=== PATIENT | female | born 1980 | race Caucasian/White ===

== ENCOUNTER 2020-04-19 18:54 | Emergency (ER) | payer OTHER, SELFPAY ==
--- NOTE | 2020-04-19 19:41 | ED.DENTAL ---
HPI - Dental/Oral General Chief complaint: Dental/Oral Stated complaint: right side of face pain/swollen/fever Time Seen by Provider: 04/19/20 19:41 Source: patient Mode of arrival: ambulatory Limitations: no limitations History of Present Illness HPI Narrative: Roberta Fajardo is a 39 yo female with a PMH w depression, asthma, who had a filling last Wednesday and pain began on Wednesday she is here for dental pain and right ear pain. Wants an antibiotic; also has swelling janes L eye Related Data Home Medications Medication Instructions Recorded Confirmed Geodon 04/19/20 amitriptyline 04/19/20 buspirone mg 04/19/20 cyclobenzaprine mg 04/19/20 hydroxyzine pamoate 04/19/20 montelukast mg 04/19/20 oxcarbazepine 04/19/20 Allergies Allergy/AdvReac Type Severity Reaction Status Date / Time No Known Drug Allergies Allergy Unknown Verified 06/28/19 16:08 Review of Systems Review of Systems: Narrative: CONSTITUTIONAL: Denies fever, chills, sweats. EYES: Denies visual changes, redness, discharge. ENT: Denies rhinorrhea, congestion, sore throat, otalgia. Dental pain CARDIOVASCULAR: Denies chest pain, palpitations, edema. RESPIRATORY: Denies dyspnea, wheezing, cough GASTROINTESTINAL: Denies abdominal pain, nausea, vomiting, diarrhea. GENITOURINARY: Denies dysuria, hematuria, abnormal discharge SKIN: Denies rash or itching. NEUROLOGIC: Denies numbness, or focal weakness. PSYCHIATRIC: Denies anxiety or depression. PMFSH Family History Family History (Updated 04/19/20 @ 19:47 by Hannah Marks CNP) Other Cerebrovascular accident Diabetes mellitus Heart disease Hypertension Social History Social History (Updated 04/19/20 @ 19:47 by Hannah Marks CNP) Smoking status: Former smoker Tobacco type: cigarettes Alcohol intake: never Comments At time of signature, I agree with nursing past medical, surgical, social and family history. There is no relevant family history pertinent to the presenting complaint. Exam Narrative: Exam Narrative: GENERAL: This is a well-nourished, well-developed patient, in mild distress. HEAD: normocephalic, atraumatic. EYES: PERRL. Sclera clear/white. Vision is grossly intact. Is swelling under left eye with minimal tenderness. Appears to have start of stye EARS: External ears normal, auditory canals clear- R ear canal erythema, fluid behind TM, submandibular lymph node tenderness; no swelling around tooth, hearing grossly intact. NOSE: External nose normal without nasal discharge, nares without redness, no rhinorrhea. THROAT: Mucous membranes moist, posterior pharynx pink NECK: Neck supple, [id number] node tenderness CARDIOVASCULAR: Regular rate and rhythm without murmurs, gallops, or rubs. RESPIRATORY: Clear to auscultation. Breath sounds equal bilaterally. No wheezes, rales, or rhonchi. GASTROINTESTINAL: Abdomen soft, non-tender, SKIN: warm, intact NEURO: awake, alert, and oriented to person, place and time. There were no obvious focal neurologic abnormalities. Steady gait EXTREMITIES: Normal range of motion. BACK: Nontender without deformity Course Course Emergency Course: Started on amoxicillin for ear and dental pain, medication Given directions on warm soaks and massage for under left eye swelling Follow-up with PCP and dentist MDM - Dental/Oral Differential Diagnosis Differential diagnosis: Likely gingival abscess, dental caries, dental abscess and other (Submandibular tenderness, right ear pain stye to left eye) Discharge Plan Discharge Clinical Impression: Toothache, Acute pain of right ear, Hordeolum externum left lower eyelid Patient Disposition: Home, Self-Care Condition: Stable Instructions: Antibiotic Form, Stye (ED), Earache (ED) Prescriptions: New amoxicillin 875 mg tablet 875 mg PO Q12H Qty: 20 RF: 0 hydrocodone-acetaminophen [[place]] 5-325 mg tablet 1 tablet PO Q6H PRN (Reason: pain) Qty: 14 RF: 0
== END 2020-04-19 20:02 | disposition home or self-care (01) ==
PROVIDERS: Emergency Provider Nurse Practitioner; PCP Internal Medicine
DX: K08.89 Other specified disorders of teeth and supporting structures (principal); H92.01 Otalgia, right ear; H00.015 Hordeolum externum left lower eyelid; Z87.891 Personal history of nicotine dependence; F32.9 Major depressive disorder, single episode, unspecified; J45.909 Unspecified asthma, uncomplicated
CPT/HCPCS: 99213; G0463

== ENCOUNTER 2020-06-02 18:03 | Emergency (ER) | payer OTHER, SELFPAY ==
[2020-06-02 18:06] VITALS: BP 109/74; PULSE 86; RESP 14; TEMP 37.1; O2SAT 99
--- NOTE | 2020-06-02 18:20 | ED.EAR ---
HPI - Ear Problem General Chief complaint: Ear Stated complaint: right ear pain/pressure/drainage Time Seen by Provider: 06/02/20 18:20 Source: patient Mode of arrival: ambulatory Limitations: no limitations History of Present Illness HPI Narrative: Roberta Fajardo is a 39 yo female with a PMH of anxiety, PTSD, who comes to express care for R ear/jaw liudmila after filling done on Wednesday by her dentist. States pain is getting worse since filling. States she has TMJ cracking with opening closing her mouth aggravates her pain. Denies nausea, vomiting, fever She is being treated for anxiety and depression related to PTSD. Related Data Home Medications Medication Instructions Recorded Confirmed buspirone 15 mg PO BID 04/19/20 06/02/20 hydroxyzine pamoate 25 mg PO BID 04/19/20 06/02/20 oxcarbazepine 300 mg PO BID 04/19/20 06/02/20 amitriptyline 25 mg PO HS 06/02/20 06/02/20 clonazepam 0.5 mg PO HS 06/02/20 06/02/20 quetiapine 50 mg PO HS 06/02/20 06/02/20 Allergies Allergy/AdvReac Type Severity Reaction Status Date / Time No Known Drug Allergies Allergy Unknown Unknown Verified 06/02/20 18:15 Review of Systems Review of Systems: Narrative: CONSTITUTIONAL: Denies fever, chills, sweats. EYES: Denies visual changes, redness, discharge. ENT: Denies rhinorrhea, congestion, sore throat, R otalgia. Right-sided jaw and tooth pain CARDIOVASCULAR: Denies chest pain, palpitations, edema. RESPIRATORY: Denies dyspnea, wheezing, cough GASTROINTESTINAL: Denies abdominal pain, nausea, vomiting, diarrhea. GENITOURINARY: Denies dysuria, hematuria, abnormal discharge SKIN: Denies rash or itching. NEUROLOGIC: Denies numbness, or focal weakness. PSYCHIATRIC: Denies anxiety or depression. [facility] Past Medical History Medical History (Updated 06/02/20 @ 18:34 by Hannah Marks CNP) PTSD (post-traumatic stress disorder) Family History Family History Other Cerebrovascular accident Diabetes mellitus Heart disease Hypertension Social History Social History (Updated 06/02/20 @ 18:29 by Hannah Marks CNP) Smoking status: Current some day smoker Tobacco type: cigarettes Alcohol intake: never Comments At time of signature, I agree with nursing past medical, surgical, social and family history. There is no relevant family history pertinent to the presenting complaint. Exam Narrative: Exam Narrative: GENERAL: This is a well-nourished, well-developed patient, in mild distress. HEAD: normocephalic, atraumatic. EYES: Sclera clear/white. Vision is grossly intact. EARS: External ears normal, auditory canals clear on L, edemaatous on R with erythema. and without drainage, TMs without perforation. Hearing grossly intact. NOSE: External nose normal without nasal discharge, nares without redness, no rhinorrhea. THROAT: Mucous membranes moist, posterior pharynx mild erythema NECK: Neck supple, tender R - submandibular LN tenderness CARDIOVASCULAR: Regular rate and rhythm without murmurs, gallops, or rubs. RESPIRATORY: Clear to auscultation. Breath sounds equal bilaterally. No wheezes, rales, or rhonchi. GASTROINTESTINAL: Abdomen soft, non-tender, SKIN: warm, intact with no suspicious lesions or rash, good texture and turgor. NEURO: awake, alert, and oriented to person, place and time. There were no obvious focal neurologic abnormalities. Steady gait EXTREMITIES: Normal range of motion. BACK: Nontender without deformity Psych: appears anxious; cooperative Course Course Emergency Course: Started on clindamycin; Tylenol 3 for pain Follow-up with primary care physician and ENT for TMJ issues Vital Signs Vital signs: Vital Signs Temperature 98.8 F 06/02/20 18:06 Pulse Rate 86 06/02/20 18:06 Respiratory Rate 14 06/02/20 18:06 Blood Pressure 109/74 06/02/20 18:06 Pulse Oximetry 99 06/02/20 18:06 Temperature 98.8 F 06/02/20 18:06 Pulse Rate 86
== END 2020-06-02 18:40 | disposition home or self-care (01) ==
PROVIDERS: Emergency Provider Nurse Practitioner; PCP Internal Medicine
DX: H92.01 Otalgia, right ear (principal); M26.621 Arthralgia of right temporomandibular joint; F17.210 Nicotine dependence, cigarettes, uncomplicated; F43.10 Post-traumatic stress disorder, unspecified; F41.9 Anxiety disorder, unspecified; F31.9 Bipolar disorder, unspecified
CPT/HCPCS: 99213; G0463

== ENCOUNTER 2020-07-09 13:33 | Outpatient (CLI) | payer OTHER, SELFPAY | END 2020-07-09 13:34 | disposition home or self-care (01) | LOC: ANHBWCAUD 14:22 | PROVIDERS: Visit Provider Otolaryngology | DX: H90.3 Sensorineural hearing loss, bilateral (principal) | CPT/HCPCS: 92557; 92567 ==

== ENCOUNTER 2020-07-25 06:37 | Outpatient (CLI) | payer OTHER, SELFPAY ==
--- NOTE | ~2020-07-25 | CT_ITS ---
EXAMINATION: CT sinus wo con DATE: 07/25/2020 06:58 INDICATION: Chronic sinusitis TECHNIQUE: Computed tomography (CT) of the paranasal sinuses was performed without intravenous contra st. The dose-length product was 318.31 mGy-cm. Iterative reconstruction technique was employed. COMPARISON: None FINDINGS: There are small mucous retention cysts of the right maxillary sinus. There is mild mucosal thickening in the left maxillary sinus. Rightward nasal septal deviation. Ostiomeatal units are paten t. Right nasal septal deviation. Mastoids are pneumatized. IMPRESSION: 1. Mild sinusitis. Reviewed, dictated and finalized at location B. IMPRESSION: 1. Mild sinusitis.
== END 2020-07-25 06:38 | disposition home or self-care (01) ==
PROVIDERS: PCP Internal Medicine; Visit Provider Otolaryngology
DX: J32.9 Chronic sinusitis, unspecified (principal)
CPT/HCPCS: 70486

== ENCOUNTER 2021-04-20 16:29 | Emergency (ER) | payer OTHER, SELFPAY ==
[2021-04-20 16:34] VITALS: BP 99/66; PULSE 92; RESP 14; TEMP 36.6; O2SAT 100
--- NOTE | 2021-04-20 17:01 | ED.GENADULT ---
HPI - General Adult General Chief complaint: Upper Respiratory Infection Stated complaint: Sore throat, right Ear pain, Rash on Feet Source: patient Mode of arrival: ambulatory Limitations: no limitations History of Present Illness HPI narrative: Pt presents for evaluation of rash that she has experienced to anterior chest wall and dorsal aspect of both feet that she has experienced for the last four to five days. She states symptoms started after eating out of the sun. She is currently on doxycycline for some type of chronic left infraorbital swelling of unknown origin per dermatology. She states she has been on this medication for many months. She denies any new lotions, soaps or detergents. She has some chronic right sided ear pain with radiation into right lateral neck, sore throat and dizziness that she initially informed me started at the same time of her rash. However later she informs me that none of these symptoms are new and that she is experienced them for many years. She states she has TMJ very bad . She has seen ENT, dermatology and other specialists for her symptoms. She states she had a mild fever recently but cannot specify when. She is also experienced some fatigue and dizziness. She denies any chills, nausea, vomiting. She has not been sexually active in at least four years. Related Data Home Medications Medication Instructions Recorded Confirmed buspirone 15 mg PO BID 04/19/20 06/02/20 hydroxyzine pamoate 25 mg PO BID 04/19/20 06/02/20 oxcarbazepine 300 mg PO BID 04/19/20 06/02/20 quetiapine 50 mg PO HS 06/02/20 06/02/20 buspirone 15 mg tablet 15 mg PO BID 07/02/20 citalopram 40 mg tablet 40 mg PO DAILY 07/02/20 clonazepam 0.5 mg tablet 0.5 mg PO DAILY 07/02/20 fluticasone furoate 100 1 inhalation INHALATION DAILY 07/02/20 mcg/actuation blister powder for inhalation montelukast 10 mg tablet 10 mg PO DAILY 07/02/20 oxcarbazepine 300 mg tablet 300 mg PO BID 07/02/20 pantoprazole 20 mg tablet,delayed 20 mg PO QAM 07/02/20 release fluoxetine 40 mg capsule 40 mg PO DAILY 07/31/20 Allergies Allergy/AdvReac Type Severity Reaction Status Date / Time aripiprazole [From Abilify] Allergy Unknown Verified 04/20/21 16:59 bupropion [From Wellbutrin] Allergy Unknown Verified 04/20/21 16:59 duloxetine [From Cymbalta] Allergy Unknown Verified 04/20/21 17:00 Review of Systems Review of Systems: Narrative: CONSTITUTIONAL: Reports subjective fever and fatigue. Denies chills, or sweats. EYES: Reports chronic swelling beneath both eyes. Denies visual changes, redness, or discharge. ENT: Reports sore throat and right-sided otalgia. Denies rhinorrhea, congestion. CARDIOVASCULAR: Denies chest pain, palpitations, or edema. RESPIRATORY: Denies cough or dyspnea. GASTROINTESTINAL: Denies abdominal pain, nausea, vomiting, or diarrhea. GENITOURINARY: Denies dysuria or hematuria. SKIN: Reports pruritic rash to chest and dorsal aspect of both feet MUSCULOSKELETAL: Denies back pain, joint pain, or myalgia. NEUROLOGIC: Reports dizziness. Denies headache, numbness, or weakness. PSYCHIATRIC: Denies anxiety or depression. [facility] Past Medical History Medical History (Updated 04/20/21 @ 17:19 by JOSE Luis, ) PTSD (post-traumatic stress disorder) Surgical History Surgical History H/O adenoidectomy H/O LEEP Family History Family History Mother Diabetes mellitus Hypertension COPD (chronic obstructive pulmonary disease) Other Cerebrovascular accident Heart disease Social History Social History Smoking packs per day: 0.5 Smoking cigarettes per day: 10.0 Years smoked: 20 Smoking pack-years: 10.00 Smoking status: Current every day smoker Tobacco type: cigarettes Second hand tobacco smoke exposure: Yes
== END 2021-04-20 17:42 | disposition home or self-care (01) ==
PROVIDERS: Emergency Provider Nurse Practitioner; PCP Internal Medicine
DX: R21 Rash and other nonspecific skin eruption (principal); R42 Dizziness and giddiness; F43.10 Post-traumatic stress disorder, unspecified; F17.210 Nicotine dependence, cigarettes, uncomplicated
CPT/HCPCS: 36416; 86308; 87081; 87880; 99213; G0463

== ENCOUNTER → 2021-06-20 01:43 | Outpatient (CLI) | payer OTHER, SELFPAY ==
[2021-06-20 19:39] LABS: SARS-CoV-2 RNA PCR Negative
== END ==
PROVIDERS: PCP Internal Medicine; Visit Provider Internal Medicine
DX: R68.89 Other general symptoms and signs (principal); Z20.822 Contact with and (suspected) exposure to COVID-19
CPT/HCPCS: C9803; U0003; U0005

== ENCOUNTER 2021-07-29 09:38 | Emergency (ER) | payer OTHER, SELFPAY ==
--- NOTE | 2021-07-29 09:43 | ED.URI ---
HPI - URI/Sore Throat General Stated Complaint: Covid symptoms Time Seen by Provider: 07/29/21 09:43 Source: patient and RN notes reviewed History of Present Illness HPI Narrative: Patient is a 41-year-old female who presents the urgent care with complaints of possible Covid-like symptoms. Patient states that her symptoms started 2 weeks ago with nausea and abdominal discomfort. Patient states that now she is having upper respiratory symptoms for the last week with runny nose, nasal congestion, sore throat, mild nonproductive cough. Patient states that she just started Sudafed this morning and has been taking Tylenol for her symptoms. Patient has had the Covid vaccine and denies of any exposure to Covid. Patient denies of any fevers. No other acute complaints. No acute distress noted. Patient aware of the plan of care. Some parts of this dictation were generated by voice recognition software and may contain typographical and/or grammatical inaccuracies. Related Data Home Medications Medication Instructions Recorded Confirmed buspirone 15 mg PO BID 04/19/20 06/02/20 hydroxyzine pamoate 25 mg PO BID 04/19/20 06/02/20 oxcarbazepine 300 mg PO BID 04/19/20 06/02/20 quetiapine 50 mg PO HS 06/02/20 06/02/20 buspirone 15 mg tablet 15 mg PO BID 07/02/20 citalopram 40 mg tablet 40 mg PO DAILY 07/02/20 clonazepam 0.5 mg tablet 0.5 mg PO DAILY 07/02/20 fluticasone furoate 100 1 inhalation INHALATION DAILY 07/02/20 mcg/actuation blister powder for inhalation montelukast 10 mg tablet 10 mg PO DAILY 07/02/20 pantoprazole 20 mg tablet,delayed 20 mg PO QAM 07/02/20 release fluoxetine 40 mg capsule 40 mg PO DAILY 07/31/20 Allergies Allergy/AdvReac Type Severity Reaction Status Date / Time aripiprazole [From Abilify] Allergy Unknown Verified 07/29/21 10:09 bupropion [From Wellbutrin] Allergy Unknown Verified 07/29/21 10:09 duloxetine [From Cymbalta] Allergy Unknown Verified 07/29/21 10:09 Review of Systems Review of Systems: CONSTITUTIONAL: Reports of intermittent chills EYES: Denies visual changes, redness, or discharge. ENT: Reports of postnasal drainage, rhinorrhea, mild congestion, sore throat CARDIOVASCULAR: Denies chest pain, palpitations, or edema. RESPIRATORY: Reports of nonproductive cough without dyspnea GASTROINTESTINAL: Denies abdominal pain, nausea, vomiting, or diarrhea. GENITOURINARY: Denies dysuria or hematuria. SKIN: Denies rash or itching. MUSCULOSKELETAL: Denies back pain, joint pain, or myalgia. NEUROLOGIC: Denies headache, numbness, or weakness. All other systems reviewed are negative, except as documented in HPI. [facility] Past Medical History Medical History (Updated 07/29/21 @ 10:07 by JOSE Da Silva) PTSD (post-traumatic stress disorder) Surgical History Surgical History H/O adenoidectomy H/O LEEP Family History Family History Mother Diabetes mellitus Hypertension COPD (chronic obstructive pulmonary disease) Other Cerebrovascular accident Heart disease Social History Social History Smoking packs per day: 0.5 Smoking cigarettes per day: 10.0 Years smoked: 20 Smoking pack-years: 10.00 Smoking status: Current every day smoker Tobacco type: cigarettes Second hand tobacco smoke exposure: Yes Alcohol intake: never Substance use: never Gender identity (if verbalized by the patient): Female Spiritual care concerns: No Comments At the time of my signature, I reviewed and agree with the nursing past medical, surgical, social, and family history. There is no relevant family history pertinent to the patient complaint. Exam Narrative: GENERAL: This is a well-nourished, well-developed patient, in no apparent distress. HEAD: normocephalic, atraumatic. EYES: PERRL. Sclera c
[2021-07-29 09:50] VITALS: BP 122/79; PULSE 79; RESP 16; TEMP 36.8; O2SAT 100
[2021-07-30 17:35] LABS: SARS-CoV-2 RNA PCR Negative
== END 2021-07-29 10:15 | disposition home or self-care (01) ==
PROVIDERS: Emergency Provider Nurse Practitioner Family; PCP Internal Medicine
DX: J01.90 Acute sinusitis, unspecified (principal); J02.9 Acute pharyngitis, unspecified; Z20.822 Contact with and (suspected) exposure to COVID-19; F17.210 Nicotine dependence, cigarettes, uncomplicated
CPT/HCPCS: 87081; 87880; 99213; C9803; G0463; U0003; U0005

== ENCOUNTER 2022-04-15 15:23 | Emergency (ER) | payer OTHER, SELFPAY ==
--- NOTE | ~2022-04-15 | XR_ITS ---
XR chest 2V DATE: 04/15/2022 15:55 INDICATION: Shortness of breath. Right posterior upper back pain TECHNIQUE: 2 views COMPARISON: 06/28/2019 2 view chest FINDINGS: Bilateral hyperinflation. No pulmonary infiltrate or consolidation, pleural effusion or pul monary vascular congestion or pneumothorax. Normal heart size. No hilar or mediastinal enlargement. I ncluded skeletal structures are unremarkable. IMPRESSION: Bilateral hyperinflation; no active cardiopulmonary disease Reviewed, dictated and finalized at location A.
[2022-04-15 15:31] VITALS: BP 104/55; PULSE 80; RESP 18; TEMP 37.3; O2SAT 100
--- NOTE | 2022-04-15 15:37 | ED.URI ---
HPI - URI/Sore Throat General Chief Complaint: Upper Respiratory Infection Stated Complaint: Sore Throat/Chest Congestion Time Seen by Provider: 04/15/22 15:37 Source: patient Mode of arrival: ambulatory Limitations: no limitations History of Present Illness HPI Narrative: 41 yo F presents with c/o sinus congestion, pain and burning, cough, bodyaches and fatigue for 10 days. States she had exposure to covid. had two neg home covid tests. Also reports SOB with exertion, chest burning past 2 days. feeling much worse today. no energy . denies N/V/D. is concerned she had covid and test wrong. pt is covid vaccinated. has been smoking daily for 25 yrs. Has constant pain to R side mid back that she thinks is from her lung. 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 All systems reviewed and negative except as noted above. Related Data Home Medications Medication Instructions Recorded Confirmed diazepam 2 mg tablet 2 mg PO DAILY 07/29/21 04/15/22 valacyclovir 1 gram tablet 1,000 mg PO DAILY 07/29/21 04/15/22 acyclovir 400 mg tablet 1 tablet PO BID 04/15/22 04/15/22 atorvastatin 20 mg tablet 1 tablet PO DAILY 04/15/22 04/15/22 pregabalin 75 mg capsule 1 cap PO BID 04/15/22 04/15/22 Allergies Allergy/AdvReac Type Severity Reaction Status Date / Time aripiprazole [From Abilify] Allergy Intermediate Dizziness Verified 04/15/22 15:40 bupropion [From Wellbutrin] Allergy Intermediate Unknown Verified 04/15/22 15:40 duloxetine [From Cymbalta] Allergy Intermediate Unknown Verified 04/15/22 15:40 epinephrine Allergy Intermediate Palpitation Verified 04/15/22 15:41 s Review of Systems Review of Systems: CONSTITUTIONAL: Reports fever, chills, or sweats. EYES: Denies visual changes, redness, or discharge. ENT: Reports rhinorrhea, congestion, sore throat, sinus pain. Denies otalgia. CARDIOVASCULAR: Denies chest pain, palpitations, or edema. RESPIRATORY: Reports cough and dyspnea. GASTROINTESTINAL: Denies abdominal pain, nausea, vomiting, or diarrhea. GENITOURINARY: Denies dysuria or hematuria. SKIN: Denies rash or itching. MUSCULOSKELETAL: Denies back pain, joint pain, or myalgia. NEUROLOGIC: Denies headache, numbness, or weakness. PSYCHIATRIC: Denies anxiety or depression. All other systems reviewed are negative, except as documented in HPI. [facility] Past Medical History Medical History (Updated 04/15/22 @ 16:20 by Mirlande Farr NP) PTSD (post-traumatic stress disorder) Surgical History Surgical History H/O adenoidectomy H/O LEEP Family History Family History Mother Diabetes mellitus Hypertension COPD (chronic obstructive pulmonary disease) Other Cerebrovascular accident Heart disease Social History Social History Smoking packs per day: 0.5 Smoking cigarettes per day: 10.0 Years smoked: 20 Smoking pack-years: 10.00 Smoking status: Current every day smoker Tobacco type: cigarettes Second hand tobacco smoke exposure: Yes Alcohol intake: never Substance use: never Gender identity (if verbalized by the patient): Female Spiritual care concerns: No Comments At time of signature, agree with nursing past medical, surgical, social and family history. There is no relevant family history pertinent to the presenting complaint. Exam Narrative: GENERAL: This is a well-nourished, well-developed patient, in no apparent distress. HEAD: normocephalic, atraumatic. EYES: PERRL. Sclera clear/white. Vision is grossly intact. EARS: External ears normal, auditory canals clear and without drainage, mild fluid to bilateral TMs, no perforation. NOSE: External nose normal with clear nasal drainage, erythema to both nares.. THROAT: Mucous membranes moist, clear postnasal drainage noted. No erythema. NECK: Neck supple, non-tender without
[2022-04-15 18:29] LABS: SARS-CoV-2 RNA PCR Positive
== END 2022-04-15 16:30 | disposition home or self-care (01) ==
PROVIDERS: Emergency Provider Nurse Practitioner Family; PCP Internal Medicine
DX: U07.1 COVID-19 (principal); F17.210 Nicotine dependence, cigarettes, uncomplicated
CPT/HCPCS: 71046; 99213; C9803; G0463; U0003; U0005

== ENCOUNTER 2022-12-22 17:45 | Emergency (ER) | payer OTHER, SELFPAY ==
[2022-12-22 17:51] VITALS: BP 94/72; PULSE 97; RESP 16; TEMP 36.1; O2SAT 99
--- NOTE | 2022-12-22 17:51 | ED.SKABFB ---
HPI - Skin/Abscess/Foreign Bdy General Chief complaint: Skin/Abscess/Foreign Body Stated complaint: Alergic Reaction/whelps Time Seen by Provider: 12/22/22 18:03 Source: patient and RN notes reviewed Mode of arrival: ambulatory Limitations: no limitations History of Present Illness HPI narrative: 42-year-old female presents with concern for rash. She reports she took fluconazole 5 days ago and the next day started noticing red spots popping up on her skin. She reports some of them have blisters, some of the blisters have popped. She reports she had a similar reaction like this to Diflucan, she was not aware the Diflucan a fluconazole over the same medications. She reports areas are itchy and some of them are painful. Reports the spots are popping up in the same spot they did last time. MD complaint: rash Related Data Home Medications Medication Instructions Recorded Confirmed diazepam 2 mg tablet 2 mg PO DAILY 07/29/21 04/15/22 valacyclovir 1 gram tablet 1,000 mg PO DAILY 07/29/21 04/15/22 acyclovir 400 mg tablet 1 tablet PO BID 04/15/22 04/15/22 atorvastatin 20 mg tablet 1 tablet PO DAILY 04/15/22 04/15/22 pregabalin 75 mg capsule 1 cap PO BID 04/15/22 04/15/22 clonidine HCl 0.1 mg tablet mg 12/22/22 clopidogrel 75 mg tablet mg 12/22/22 fluconazole 100 mg tablet mg 12/22/22 Allergies Allergy/AdvReac Type Severity Reaction Status Date / Time aripiprazole [From Abilify] Allergy Intermediate Dizziness Verified 04/15/22 15:40 bupropion [From Wellbutrin] Allergy Intermediate Unknown Verified 04/15/22 15:40 duloxetine [From Cymbalta] Allergy Intermediate Unknown Verified 04/15/22 15:40 epinephrine Allergy Intermediate Palpitation Verified 04/15/22 15:41 s fluconazole Allergy Intermediate Rash Verified 12/22/22 18:10 Review of Systems Review of Systems: CONSTITUTIONAL: Reports malaise. Denies chills, sweats, or fever. EYES: Denies redness, or discharge. ENT: Denies rhinorrhea, congestion, swollen lips, swollen tongue CARDIOVASCULAR: Denies chest pain, palpitations, or edema. RESPIRATORY: Denies cough or dyspnea. GASTROINTESTINAL: Denies abdominal pain, nausea, vomiting SKIN: Reports rash with some blisters, some pop blisters MUSCULOSKELETAL: Denies joint pain or myalgia. NEUROLOGIC: Denies headache. All systems reviewed & are unremarkable except as noted in HPI and below PMFSH Past Medical History Medical History (Updated 12/22/22 @ 18:10 by Keisha Feldman NP) PTSD (post-traumatic stress disorder) Surgical History Surgical History H/O adenoidectomy H/O LEEP Family History Family History Mother Diabetes mellitus Hypertension COPD (chronic obstructive pulmonary disease) Other Cerebrovascular accident Heart disease Social History Social History Smoking packs per day: 0.5 Smoking cigarettes per day: 10.0 Years smoked: 20 Smoking pack-years: 10.00 Smoking status: Current every day smoker Tobacco type: cigarettes Second hand tobacco smoke exposure: Yes Alcohol intake: never Substance use: never Living arrangements: with family Gender identity (if verbalized by the patient): Female Spiritual care concerns: No Comments At time of signature, agree with nursing past medical, surgical, social and family history. There is no relevant family history pertinent to the presenting complaint Exam Narrative: GENERAL: Well-appearing, well-nourished, and in no acute distress. HEAD: Normocephalic, atraumatic. EYES: PERRLA, conjunctivae clear, and EOMI. ENT: Mucous membranes moist. Oropharynx without edema, erythema or lesions. NECK: Supple. No lymphadenopathy CHEST: Clear to auscultation. No respiratory distress. HEART: Regular rate and rhythm. SKIN: Warm, dry. Sharply defined lichenoid lesions not
== END 2022-12-22 18:18 | disposition home or self-care (01) ==
PROVIDERS: Emergency Provider Nurse Practitioner; PCP Internal Medicine
DX: L43.2 Lichenoid drug reaction (principal); T37.8X5A Adverse effect of other specified systemic anti-infectives and antiparasitics, initial encounter
CPT/HCPCS: 99213; G0463

== ENCOUNTER 2023-02-16 19:09 | Emergency (ER) | payer OTHER, SELFPAY ==
[2023-02-16 19:15] VITALS: BP 104/83; PULSE 89; RESP 20; TEMP 36.8; O2SAT 100
[2023-02-16 19:26] VITALS: BP 104/83; PULSE 89; RESP 20; TEMP 36.8; O2SAT 100
--- NOTE | 2023-02-16 19:26 | ED.EYEPROB ---
HPI - Eye Problem General Chief complaint: Eye Problems Stated complaint: Eye Problem History of Present Illness HPI Narrative: 42-year-old female presents [facility] complaining of eye problems. Patient stated the started about a month ago when she noticed that her eyes it be extremely itchy and eyes were runny . Patient states the pain, runny eyes, and discharge is worse during the morning and then improves during the day. Patient denies any discharge coming from her eyes but does state having crusty eyes in the morning. Patient has tried using [id number] eyedrops and Benadryl for symptoms with with some relief. Patient does not wear contacts. patient denies any vision changes, blurry vision, or vision loss. Patient denies any upper respiratory symptoms. 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 Related Data Home Medications Medication Instructions Recorded Confirmed diazepam 2 mg tablet 2 mg PO DAILY 07/29/21 02/16/23 valacyclovir 1 gram tablet 1,000 mg PO DAILY 07/29/21 02/16/23 acyclovir 400 mg tablet 1 tablet PO BID 04/15/22 02/16/23 atorvastatin 20 mg tablet 1 tablet PO DAILY 04/15/22 02/16/23 pregabalin 75 mg capsule 1 cap PO BID 04/15/22 02/16/23 clonidine HCl 0.1 mg tablet 0.1 mg PO HS 12/22/22 02/16/23 clopidogrel 75 mg tablet 75 mg PO DAILY 12/22/22 02/16/23 Allergies Allergy/AdvReac Type Severity Reaction Status Date / Time aripiprazole [From Abilify] Allergy Intermediate Dizziness Verified 02/16/23 19:20 bupropion [From Wellbutrin] Allergy Intermediate Unknown Verified 02/16/23 19:20 duloxetine [From Cymbalta] Allergy Intermediate Unknown Verified 02/16/23 19:20 epinephrine Allergy Intermediate Palpitation Verified 02/16/23 19:20 s fluconazole Allergy Intermediate Rash Verified 02/16/23 19:20 Review of Systems Review of Systems: CONSTITUTIONAL: Denies fever, chills, or sweats. EYES: Denies visual changes, redness, or discharge. Positive for itchy and watery eyes ENT: Denies otalgia and sore throat CARDIOVASCULAR: Denies chest pain, palpitations, or edema. RESPIRATORY: Denies cough or dyspnea. GASTROINTESTINAL: Denies abdominal pain, nausea, vomiting, or diarrhea. GENITOURINARY: Denies dysuria or hematuria. SKIN: Denies rash or itching. MUSCULOSKELETAL: Denies back pain, joint pain, or myalgia. NEUROLOGIC: Denies headache, numbness, or weakness. Pertinent positives per HPI. [facility] Past Medical History Medical History (Updated 02/16/23 @ 19:36 by Janie Gonzalez APRN) PTSD (post-traumatic stress disorder) Surgical History Surgical History (Updated 02/09/23 @ 12:05 by Rebekah Cerna) H/O adenoidectomy H/O LEEP Family History Family History (System 02/09/23 @ 12:05 by Rebekah Cerna) Mother Diabetes mellitus Hypertension COPD (chronic obstructive pulmonary disease) Other Cerebrovascular accident Heart disease Social History Social History (System 02/09/23 @ 12:05 by Rebekah Cerna) Smoking packs per day: 0.5 Smoking cigarettes per day: 10.0 Years smoked: 20 Smoking pack-years: 10.00 Smoking status: Current every day smoker Tobacco type: cigarettes Second hand tobacco smoke exposure: Yes Alcohol intake: never Substance use: never Living arrangements: with family Gender identity (if verbalized by the patient): Female Spiritual care concerns: No Comments At the time of my signature, I reviewed and agree with the nursing past medical, surgical, social, and family history. There is no relevant family history pertinent to the patient complaint. Exam Narrative: GENERAL: This is a well-nourished, well-developed patient, in no apparent distress. HEAD: normocephalic, atraumatic. EYES: PERRL. Sclera clear/white. Vision is grossly intact. Clear drainage present. Lower periorbital edema present. Conjunctiva pink. EARS: External ears normal, auditory canals clear and without drainag
== END 2023-02-16 19:40 | disposition home or self-care (01) ==
PROVIDERS: Emergency Provider Nurse Practitioner Family; PCP Internal Medicine
DX: H10.9 Unspecified conjunctivitis (principal); F17.210 Nicotine dependence, cigarettes, uncomplicated; F43.10 Post-traumatic stress disorder, unspecified
CPT/HCPCS: 99213; G0463

== ENCOUNTER 2023-03-02 14:11 | Emergency (ER) | payer OTHER, SELFPAY ==
[2023-03-02 14:15] VITALS: BP 113/77; PULSE 84; RESP 20; TEMP 37.6; O2SAT 100
--- NOTE | 2023-03-02 14:38 | ED.GENADULT ---
HPI - General Adult General Chief complaint: Upper Respiratory Infection Stated complaint: eyes/cold Time Seen by Provider: 03/02/23 14:24 Source: patient Mode of arrival: ambulatory Limitations: no limitations History of Present Illness HPI narrative: Patient presents for evaluation of multiple concerns. She reports pruritus to both eyes with clear drainage. She was seen here in the middle of this month and was given antibiotic drops which she has been taking as directed. She has also been taking Benadryl. She now reports some nasal congestion and bloody drainage from her nares when she blows her nose. She recently had a sore throat but that has improved. She reports some chest congestion. No fever, chills, nausea, vomiting. No recent sick contacts to her knowledge. She uses an electronic cigarette. She had a CTA brain in the middle of this month and had an incidental finding of maxillary sinusitis on the reading. Related Data Home Medications Medication Instructions Recorded Confirmed diazepam 2 mg tablet 2 mg PO DAILY 07/29/21 03/02/23 valacyclovir 1 gram tablet 1,000 mg PO DAILY 07/29/21 03/02/23 acyclovir 400 mg tablet 1 tablet PO BID 04/15/22 03/02/23 atorvastatin 20 mg tablet 1 tablet PO DAILY 04/15/22 03/02/23 pregabalin 75 mg capsule 1 cap PO BID 04/15/22 03/02/23 clonidine HCl 0.1 mg tablet 0.1 mg PO HS 12/22/22 03/02/23 clopidogrel 75 mg tablet 75 mg PO DAILY 12/22/22 03/02/23 Allergies Allergy/AdvReac Type Severity Reaction Status Date / Time aripiprazole [From Abilify] Allergy Intermediate Dizziness Verified 03/02/23 14:35 bupropion [From Wellbutrin] Allergy Intermediate Unknown Verified 03/02/23 14:35 duloxetine [From Cymbalta] Allergy Intermediate Unknown Verified 03/02/23 14:35 epinephrine Allergy Intermediate Palpitation Verified 03/02/23 14:35 s fluconazole Allergy Intermediate Rash Verified 03/02/23 14:35 Review of Systems Review of Systems: CONSTITUTIONAL: Denies fever, chills, or sweats. EYES:Reports itching to both eyes with clear drainage ENT: Reports sinus congestion and bloody drainage from the nares. Reports recent sore throat, improved as of late CARDIOVASCULAR: Denies chest pain, palpitations, or edema. RESPIRATORY: Reports chest congestion. Denies shortness of breath GASTROINTESTINAL: Denies abdominal pain, nausea, vomiting, or diarrhea. GENITOURINARY: Denies dysuria or hematuria. SKIN: Denies rash or itching. MUSCULOSKELETAL: Denies back pain, joint pain, or myalgia. NEUROLOGIC: Denies headache, numbness, dizziness, or weakness. PSYCHIATRIC: Denies anxiety or depression. [facility] Past Medical History Medical History Aneurysm Depression PTSD (post-traumatic stress disorder) Surgical History Surgical History H/O adenoidectomy H/O LEEP Family History Family History Mother Diabetes mellitus Hypertension COPD (chronic obstructive pulmonary disease) Other Cerebrovascular accident Heart disease Social History Social History Smoking packs per day: 0.5 Smoking cigarettes per day: 10.0 Years smoked: 20 Smoking pack-years: 10.00 Smoking status: Current every day smoker Tobacco type: e-cigarettes/vaping Second hand tobacco smoke exposure: Yes Alcohol intake: never Substance use: never Living arrangements: with family Gender identity (if verbalized by the patient): Female Spiritual care concerns: No Exam Narrative: GENERAL: Well-appearing, well-nourished, and in no acute distress. HEAD: Normocephalic, atraumatic. EYES: PERRLA and EOMI. ENT: Nares clear, no rhinorrhea or epistaxis. Mucous membranes moist. Oropharynx without tonsillar hypertrophy exudate or other lesions. Bilateral TMs erythema N
== END 2023-03-02 14:38 | disposition home or self-care (01) ==
PROVIDERS: Emergency Provider Nurse Practitioner; PCP Internal Medicine
DX: J32.0 Chronic maxillary sinusitis (principal); H10.13 Acute atopic conjunctivitis, bilateral; F17.290 Nicotine dependence, other tobacco product, uncomplicated
CPT/HCPCS: 99213; G0463

== ENCOUNTER 2023-03-19 09:06 | Outpatient (CLI) | payer OTHER, SELFPAY ==
--- NOTE | ~2023-03-19 | XR_ITS ---
EXAMINATION: XR chest 2V 03/19/2023 10:13 INDICATION: Chest pain PROCEDURE: 2 view chest COMPARISON: 04/15/2022 FINDINGS: The lungs are clear. The cardiomediastinal silhouette is within normal limits. There are no pleural effusions. There is no pneumothorax suspected. IMPRESSION: 1: NO ACUTE CARDIOPULMONARY DISEASE. Reviewed, dictated and finalized at location []
--- NOTE | ~2023-03-19 | XR_ITS ---
EXAM: XR hand BI arthritis min 3V DATE: 03/19/2023 10:12 HISTORY: F32.9 - Major depressive disorder, single episode, unspec... . COMPARISON: None available. FINDINGS: Normal mineralization. No fracture or dislocation. No lytic or blastic lesion. Joint space s are maintained. No erosion or periosteal change. Soft tissues within normal limits. No subluxations . IMPRESSION: Normal bilateral hand radiograph findings. Reviewed, dictated and finalized at location K.
--- NOTE | ~2023-03-19 | XR_ITS ---
EXAM: XR foot LT standing 2V, XR foot RT standing 2V DATE: 03/19/2023 10:12 HISTORY: F32.9 - Major depressive disorder, single episode, unspec... . COMPARISON: None available. FINDINGS: Normal mineralization. No fracture or dislocation. No lytic or blastic lesion. Joint space s are maintained. Bilateral plantar enthesopathy No erosion or periosteal change. Soft tissues within normal limits. IMPRESSION: Bilateral plantar enthesopathy, otherwise normal bilateral foot radiograph findings. Reviewed, dictated and finalized at location K. IMPRESSION: Bilateral plantar enthesopathy, otherwise normal bilateral foot rad iograph findings.
--- NOTE | ~2023-03-19 | XR_ITS ---
EXAM: XR lumbar spine 2-3V DATE: 03/19/2023 10:12 HISTORY: F32.9 - Major depressive disorder, single episode, unspec... . COMPARISON: 05/03/2013. FINDINGS: 5 nonrib-bearing lumbar-type vertebral bodies. Pedicles intact. Normal vertebral body alig nment. Vertebral body heights preserved. Disc spaces maintained. Normal facets and posterior elements . No fracture or dislocation. IMPRESSION: Normal lumbar spine radiograph findings. Reviewed, dictated and finalized at location K.
--- NOTE | ~2023-03-19 | XR_ITS ---
EXAM: XR_CERV2-3V_CR DATE: 03/19/2023 10:12 HISTORY: F32.9 - Major depressive disorder, single episode, unspec... . COMPARISON: None available. FINDINGS: Craniocervical association and atlantoaxial joint are aligned. No prevertebral soft tissue swelling. Reversal of the normal cervical lordosis, centered at C5. Vertebral bodies are aligned. Ve rtebral body heights are maintained. Moderate disc space narrowing at C6-7. Mild multilevel facet hyp ertrophy. IMPRESSION: Moderate degenerative disc disease at C6-7. Mild multilevel facet arthropathy. Reviewed, dictated and finalized at location K. IMPRESSION: Moderate degenerative disc disease at C6-7. Mild multilevel facet a rthropathy.
--- NOTE | ~2023-03-19 | XR_ITS ---
EXAM: XR sacroiliac joints min 3V DATE: 03/19/2023 10:12 HISTORY: F32.9 - Major depressive disorder, single episode, unspec... . COMPARISON: None available. FINDINGS: Normal mineralization. No fracture or dislocation. No lytic or blastic lesion. Joint space s and physes are maintained. No erosion or periosteal change. Soft tissues within normal limits. IMPRESSION: Normal sacroiliac joint radiograph findings. Reviewed, dictated and finalized at location K.
[2023-03-19 10:28] LABS: Erythrocyte Sedimentation Rate 17 mm/hr (0-20)
[2023-03-19 10:39] LABS: Vitamin D 25 Hydroxy 45.8 ng/mL
[2023-03-19 10:53] LABS: Hepatitis B Surface Antigen Negative (Negative)
[2023-03-19 15:15] LABS: Complement C3 112 mg/dL (88-165); Rheumatoid Factor < 12.0 IU/ML (<12)
[2023-03-19 15:54] LABS: HIV 1/2 Ab P24 Ag Result Negative (Negative)
[2023-03-24 20:59] LABS: Anti Cyclic Citrullinated Pept <16 Units (<20)
[2023-03-25 21:43] LABS: Angiotensin Converting Enzyme 36.3 U/L (9-67)
[2023-03-26 03:48] LABS: Lupus dRVVT Screen 32 sec (<=45); PTT-LA Screen 29 sec (<=40)
== END 2023-03-19 09:07 | disposition home or self-care (01) ==
LOC: ANHLAB 09:09
PROVIDERS: PCP Internal Medicine; Visit Provider Internal Medicine
DX: F32.9 Major depressive disorder, single episode, unspecified (principal); G43.909 Migraine, unspecified, not intractable, without status migrainosus; H91.91 Unspecified hearing loss, right ear; I72.9 Aneurysm of unspecified site; J32.9 Chronic sinusitis, unspecified; M25.50 Pain in unspecified joint; R20.0 Anesthesia of skin; R20.2 Paresthesia of skin; Z98.890 Other specified postprocedural states; M19.90 Unspecified osteoarthritis, unspecified site; R07.9 Chest pain, unspecified; M77.31 Calcaneal spur, right foot; M77.32 Calcaneal spur, left foot; M50.323 Other cervical disc degeneration at C6-C7 level
CPT/HCPCS: 36415; 71046; 72040; 72100; 72202; 73130; 73620; 82164; 82306; 84550; 85613; 85652; 85730; 86038; 86160; 86200; 86225; 86430; 86703; 87340; G0432

== ENCOUNTER 2023-03-30 11:55 | Emergency (ER) | payer OTHER, SELFPAY ==
--- NOTE | 2023-03-30 12:00 | ED.EYEPROB ---
HPI - Eye Problem General Chief complaint: Eye Problems Stated complaint: Eye Problem Source: patient and RN notes reviewed History of Present Illness HPI Narrative: 42 yo F presents to urgent care with son at side. Patient was seen here 02/16/2023 and diagnosed with conjunctivitis and given a prescription for Polytrim which she completed. Patient was not seen 03/02/2023 stating her symptoms continued and was given Naphcon eyedrops as well as Augmentin for sinusitis. Pt states her symptoms improved after the Abx was completed but her eye pain started again a few days ago. Pt reports itching, burning, and drainage. Pt states she wakes up with her eyes matted. Pt reports intermittent blurriness b/c of this. Pt denies any fevers, chills, or other complaints. Pt does not wear contacts. Related Data Home Medications Medication Instructions Recorded Confirmed diazepam 2 mg tablet 2 mg PO DAILY 07/29/21 03/30/23 valacyclovir 1 gram tablet 1,000 mg PO DAILY 07/29/21 03/30/23 acyclovir 400 mg tablet 1 tablet PO BID 04/15/22 03/30/23 atorvastatin 20 mg tablet 1 tablet PO DAILY 04/15/22 03/30/23 pregabalin 75 mg capsule 1 cap PO BID 04/15/22 03/30/23 clonidine HCl 0.1 mg tablet 0.1 mg PO HS 12/22/22 03/30/23 clopidogrel 75 mg tablet 75 mg PO DAILY 12/22/22 03/30/23 Allergies Allergy/AdvReac Type Severity Reaction Status Date / Time aripiprazole [From Abilify] Allergy Intermediate Dizziness Verified 03/30/23 12:02 bupropion [From Wellbutrin] Allergy Intermediate Unknown Verified 03/30/23 12:02 duloxetine [From Cymbalta] Allergy Intermediate Unknown Verified 03/30/23 12:02 epinephrine Allergy Intermediate Palpitation Verified 03/30/23 12:02 s fluconazole Allergy Intermediate Rash Verified 03/30/23 12:02 Review of Systems Review of Systems: CONSTITUTIONAL: Denies fever, chills, or sweats. EYES: Bilateral eye pain, itching, and drainage ENT: Denies otalgia and sore throat CARDIOVASCULAR: Denies chest pain, palpitations, or edema. RESPIRATORY: Denies cough or dyspnea. GASTROINTESTINAL: Denies abdominal pain, nausea, vomiting, or diarrhea. GENITOURINARY: Denies dysuria or hematuria. SKIN: Denies rash or itching. MUSCULOSKELETAL: Denies back pain, joint pain, or myalgia. NEUROLOGIC: Denies headache, numbness, or weakness. Pertinent positives per HPI. [facility] Past Medical History Medical History (Updated 03/30/23 @ 12:29 by Janie Gonzalez APRN) Aneurysm Depression Inflammatory arthritis Numbness and tingling Polyarthralgia PTSD (post-traumatic stress disorder) Surgical History Surgical History H/O adenoidectomy H/O LEEP Family History Family History Mother Diabetes mellitus Hypertension COPD (chronic obstructive pulmonary disease) Other Cerebrovascular accident Heart disease Social History Social History Smoking packs per day: 0.5 Smoking cigarettes per day: 10.0 Years smoked: 20 Smoking pack-years: 10.00 Smoking status: Current every day smoker Tobacco type: e-cigarettes/vaping Second hand tobacco smoke exposure: Yes Alcohol intake: never Substance use: never Living arrangements: with family Gender identity (if verbalized by the patient): Female Spiritual care concerns: No Comments At the time of my signature, I reviewed and agree with the nursing past medical, surgical, social, and family history. There is no relevant family history pertinent to the patient complaint. Exam Narrative: GENERAL: This is a well-nourished, well-developed patient, in no apparent distress. HEAD: normocephalic, atraumatic. EYES: Sclera clear/white. Vision is grossly intact. Bilateral conjunctivae pale. No drainage noted. EARS: External ears normal, auditory canals clear and without drainage. Hearing grossly intact. NOSE: [employer]
[2023-03-30 12:04] VITALS: BP 105/74; PULSE 72; RESP 18; TEMP 36.9; O2SAT 100
== END 2023-03-30 12:35 | disposition home or self-care (01) ==
PROVIDERS: Emergency Provider Nurse Practitioner Family; PCP Internal Medicine
DX: H10.13 Acute atopic conjunctivitis, bilateral (principal); F17.290 Nicotine dependence, other tobacco product, uncomplicated; M13.80 Other specified arthritis, unspecified site
CPT/HCPCS: 99211; G0463

== ENCOUNTER 2024-07-17 17:25 | Emergency (ER) | payer OTHER, SELFPAY ==
[2024-07-17 17:37] VITALS: BP 104/67; PULSE 72; RESP 16; TEMP 37.1; O2SAT 100
--- NOTE | 2024-07-17 17:47 | ED.URI ---
HPI - URI/Sore Throat General Chief Complaint: Upper Respiratory Infection Stated Complaint: throat/headache/nausea Time Seen by Provider: 07/17/24 17:51 Source: patient, RN notes reviewed and old records reviewed Mode of arrival: ambulatory Limitations: no limitations History of Present Illness HPI Narrative: 44 year old female present to express care with complaints of 5-6 day history of intermittent headaches, sore throat and chest burning with occasional cough. Patient reports that she has no shortness of breath or acute cough, reports fatigue, reports no known fevers but has woke up feeling sweaty. Patient reports that she has been taking OTC cold medication without resolution. MD elicited complaint: sore throat and other (headache, chest burning.) Onset (ago): day(s) (5-6) Severity: moderate Description of mucous: clear Able to tolerate fluids by mouth: Yes Exacerbating factors: swallowing Treatments prior to arrival: cold medicine Related Data Home Medications Medication Instructions Recorded Confirmed diazepam 2 mg tablet 2 mg PO DAILY 07/29/21 03/30/23 valacyclovir 1 gram tablet 1,000 mg PO DAILY 07/29/21 03/30/23 acyclovir 400 mg tablet 1 tablet PO BID 04/15/22 03/30/23 atorvastatin 20 mg tablet 1 tablet PO DAILY 04/15/22 03/30/23 pregabalin 75 mg capsule 1 cap PO BID 04/15/22 03/30/23 clonidine HCl 0.1 mg tablet 0.1 mg PO HS 12/22/22 03/30/23 clopidogrel 75 mg tablet 75 mg PO DAILY 12/22/22 03/30/23 Allergies Allergy/AdvReac Type Severity Reaction Status Date / Time aripiprazole [From Abilify] Allergy Intermediate Dizziness Verified 03/30/23 12:02 bupropion [From Wellbutrin] Allergy Intermediate Unknown Verified 03/30/23 12:02 duloxetine [From Cymbalta] Allergy Intermediate Unknown Verified 03/30/23 12:02 epinephrine Allergy Intermediate Palpitation Verified 03/30/23 12:02 s fluconazole Allergy Intermediate Rash Verified 03/30/23 12:02 Review of Systems Review of Systems: CONSTITUTIONAL: reports malaise, no chills, some sweats, no known fevers EYES: Denies visual changes, redness, or discharge. ENT: Reports rhinorrhea, congestion,no sinus pain, no otalgia and positive for sore throat. CARDIOVASCULAR: Denies chest pain, palpitations, or edema. RESPIRATORY: Reports intermittent cough.? Denies dyspnea,states that chest is burning GASTROINTESTINAL: Denies abdominal pain, nausea, vomiting, diarrhea SKIN: Denies rash or itching. MUSCULOSKELETAL: Denies myalgia. NEUROLOGIC: Reports intermittent headache. All systems reviewed & are unremarkable except as noted in HPI and below PMFSH Past Medical History Medical History Aneurysm Depression Inflammatory arthritis Numbness and tingling Paresthesia and pain of both upper extremities Polyarthralgia PTSD (post-traumatic stress disorder) Surgical History Surgical History H/O adenoidectomy H/O LEEP Family History Family History Mother Diabetes mellitus Hypertension COPD (chronic obstructive pulmonary disease) Other Cerebrovascular accident Heart disease Social History Social History Smoking packs per day: 0.5 Smoking cigarettes per day: 10.0 Years smoked: 20 Smoking pack-years: 10.00 Smoking status: Current every day smoker Tobacco type: e-cigarettes/vaping Second hand tobacco smoke exposure: Yes Additional smoking assessment comments: quit 2 years ago Alcohol intake: never Substance use: never Living arrangements: with family Gender identity (if verbalized by the patient): Female Spiritual care concerns: No Comments At time of signature, agree with nursing past medical, surgical, social and family history. There is no relevant family history pertinent to the presenting complaint
[2024-07-17 17:50] LABS: EDSTREPNEGPOS1 Negative (Negative)
== END 2024-07-17 18:01 | disposition home or self-care (01) ==
PROVIDERS: Emergency Provider Registered Nurse; PCP Internal Medicine
DX: R05.9 Cough, unspecified (principal); J02.9 Acute pharyngitis, unspecified; M13.80 Other specified arthritis, unspecified site
CPT/HCPCS: 87081; 87880; 99213; G0463